=== PATIENT | female | born 1950 | race Caucasian/White ===

== ENCOUNTER 2023-05-21 10:23 | Day surgery (SDC) | payer MEDICARE, OTHER ==
[~2023-05-21] VITALS: Ht 162.6 cm; Wt 64.2 kg
[2023-05-21] MEDS ORDERED: BIOTIN1 MG (10:56)
[2023-05-21] MEDS ORDERED: Vitamin B-12100 MCG (10:56)
[2023-05-21] MEDS ORDERED: GLUC500 (10:56)
--- NOTE | 2023-05-21 12:53 | NUR ---
05/21/23 1253 Cinthia Bhatt 1215: PT SLEEPING IN PRE-OP AND CALL LIGHT WITHIN REACH. 1230: PT CONTINUES TO SLEEP, PT'S RIDE HOME, GREG UPDATED THAT PREVIOUS CASE IS RUNNING LATE. 1245: THIS RN CHECKED ON PT AND NOTIFIED PT THAT PREVIOUS CASE RUNNING LATE. PT WAS GIVEN GIFT CARD FOR THE INCONVENIENCE. PT EXPRESSED UNDERSTANDING AND IS PLEASANT. PT AMBULATED TO RESTROOM TO TOILET AND AMBULATED BACK TO PRE-OP ROOM. CALL LIGHT CONTINUES TO BE WITHIN REACH.
[2023-05-21 14:59] VITALS: BP 112/78
== END 2023-05-21 14:59 | disposition home or self-care (01) ==
LOC: ORSCSDS 10:23
PROVIDERS: Internal Medicine Gastroenterology
PROC: 0DBL8ZX Excision of Transverse Colon, Via Natural or Artificial Opening Endoscopic, Diagnostic (ICD-10-PCS; principal; 2023-05-21 11:45)
DX: Z12.11 Encounter for screening for malignant neoplasm of colon (principal); Z86.010 Personal history of colon polyps; Z80.0 Family history of malignant neoplasm of digestive organs; K63.5 Polyp of colon; K57.30 Diverticulosis of large intestine without perforation or abscess without bleeding; K64.4 Residual hemorrhoidal skin tags; E78.5 Hyperlipidemia, unspecified
CPT/HCPCS: 82947; 88305; J2704; J7120

== ENCOUNTER 2024-10-15 06:25 | Day surgery (SDC) | payer OTHER ==
[~2024-10-15] VITALS: Ht 162.6 cm; Wt 67.2 kg
[~2024-10-15 06:25] MED LIST: BIOTIN1 MG; Balanced Salt Epinephrine Irrigation Solution 500 mL IR SCH; Diazepam 5 MG Tab PO PRN; Diazepam 5 MG Tab PO SCH; GLUC500; Lidocaine HCl/Pf 1% 5 ML VIAL XX SCH; Moxifloxacin HCL 0.5 MG/0.1 ML 0.4MLSYR RIGHTEYE SCH; Ondansetron 4 MG SoluTab MM PRN; PHENYLEPHRINE\\TROPICAMIDE\\TETRACAINE OPHTHALMIC DILATING SOLN RIGHTEYE PRN; Povidone-Iodine 450 DROP/30 ML Solution ONE; Povidone-Iodine 450 DROP/30 ML Solution RIGHTEYE SCH; Tetracaine HCl/Pf 0.5% Opth Soln 4 ml ONE; Triamcinolone Inj Susp 40 MG / ML 1ML Vial INJ SCH; Vitamin B-12100 MCG
[2024-10-15] MEDS ORDERED: Triamcinolone Inj Susp 40 MG / ML 1ML Vial ONE (06:31)
[2024-10-15] MEDS ORDERED: Diazepam 10 MG Tab ONE (06:49)
[2024-10-15] MEDS ORDERED: [UNRECOGNIZED DRUG - OTHER] (07:09)
[2024-10-15] MEDS ORDERED: LIONS MANE (07:09)
[2024-10-15] MEDS ORDERED: Milk Thistle175 M1 (07:10)
--- NOTE | 2024-10-15 07:21 | NUR ---
10/15/24 0721 Sathya HyattIUM 10 MG TAB ADMINISTERED AT 0705, PT TOLERATED WELL. TETRACAINE ADMINISTERED AT 0706, PLEDGET PLACED AT 0708.
--- NOTE | 2024-10-15 07:57 | NUR ---
10/15/24 0757 Naomie Hopson 0755 BP 131/77. PULSE 66, O2 95% ON BLOW BY OXYGEN. PT FEELING COMFORTABLE
[2024-10-15 08:16] VITALS: BP 138/82
== END 2024-10-15 08:30 | disposition home or self-care (01) ==
LOC: ORSCSDS 06:25
PROVIDERS: Ophthalmology
PROC: 08RJ3JZ Replacement of Right Lens with Synthetic Substitute, Percutaneous Approach (ICD-10-PCS; principal; 2024-10-15 08:00)
DX: E11.36 Type 2 diabetes mellitus with diabetic cataract (principal); H25.813 Combined forms of age-related cataract, bilateral; H35.3113 Nonexudative age-related macular degeneration, right eye, advanced atrophic without subfoveal involvement; H35.3122 Nonexudative age-related macular degeneration, left eye, intermediate dry stage; Z79.899 Other long term (current) drug therapy
CPT/HCPCS: 82947; A9270; J3301; V2632